=== PATIENT | female | born 1945 | race Two or more races ===

== ENCOUNTER 2017-09-05 10:05 | Emergency (ER) | payer MEDICARE, BC ==
[2017-09-05] MEDS ORDERED: amLODIPine 2.5 MG Tab ONE (10:20)
--- NOTE | 2017-09-05 10:26 | EDM.PDOC ---
ED HPI GENERAL MEDICAL PROBLEM - General Chief Complaint: General Stated Complaint: EDEMA Time Seen by Provider: 09/05/17 10:05 Source of Information: Reports: Patient, Family History Limitations: Reports: No Limitations - History of Present Illness INITIAL COMMENTS - FREE TEXT/NARRATIVE: Pt is a 71 years old female with old CVA, HTN who is from [place], [place], here with her family. According to son who is her manager care management, he has noticed some swelling of the lower lip, and also left hand over the radial aspect since last evening. Today she has had swelling over right hand too. No hoarseness of voice , no wheezing or stridor. 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 Pt is on coumadin and hence son got concerned. Onset Date: 09/04/17 Improves with: Reports: None Worsens with: Reports: None Associated Symptoms: Denies: Confusion, Chest Pain, Cough, Diaphoresis, Fever/ Chills, Headaches, Loss of Appetite, Malaise, Nausea/Vomiting, Rash, Seizure, Shortness of Breath, Syncope, Weakness ED ROS GENERAL - Review of Systems Review Of Systems: See Below Constitutional: Denies: Fever, Chills, Weakness, Fatigue, Night Sweats HEENT: Denies: Rhinitis, Sinus Problem, Throat Pain, Throat Swelling Respiratory: Denies: Shortness of Breath, Wheezing, Pleuritic Chest Pain, Cough , Sputum Cardiovascular: Denies: Chest Pain, Lightheadedness GI/Abdominal: Denies: Abdominal Pain, Nausea, Vomiting Musculoskeletal: Denies: Joint Pain, Joint Swelling Skin: Denies: Bruising, Pruritis, Rash Neurological: Reports: Pre-Existing Deficit (from old CVA- slurred speech). Denies: Confusion, Dizziness, Headache, Numbness, Seizure, Syncope, Tingling Psychiatric: Denies: Agitation, Anxiety, Confusion ED EXAM, GENERAL - Physical Exam Exam: See Below Exam Limited By: No Limitations General Appearance: Alert, WD/WN, No Apparent Distress Eye Exam: Bilateral Eye: EOMI, PERRL Ears: Normal External Exam, Normal Canal, Hearing Grossly Normal, Normal TMs Ear Exam: Bilateral Ear: Auricle Normal, Canal Normal, TM normal Nose: Normal Inspection, Normal Mucosa, No Blood Throat/Mouth: Normal Inspection, Normal Lips, Normal Teeth, Normal Gums, Normal Oropharynx, Normal Voice, No Airway Compromise Head: Atraumatic, Normocephalic Neck: Normal Inspection, Supple, Non-Tender, Full Range of Motion Respiratory/Chest: No Respiratory Distress, Lungs Clear, Normal Breath Sounds, No Accessory Muscle Use, Chest Non-Tender Cardiovascular: Normal Peripheral Pulses, Regular Rate, Rhythm, No Edema, No Gallop, No JVD, No Murmur, No Rub GI/Abdominal: Normal Bowel Sounds, Soft, Non-Tender, No Organomegaly, No Distention, No Abnormal Bruit, No Mass Extremities: Normal Inspection, Normal Range of Motion, Non-Tender, Normal Capillary Refill, No Pedal Edema Neurological: Alert, Oriented, CN II-XII Intact, Normal Cognition, Normal Gait, Normal Reflexes, No Motor/Sensory Deficits Skin Exam: Warm, Intact, Erythema (Mild erythema which is circumscribed over the radial aspect of the left hand over the thumb and index finger. There is skin edema over the rash. Nontender and minimally warm. Pt has similar symmetrical swelling over the right hand dorsum. Also the lower lip appears milds swoolen. No tongue swelling.). No: Ecchymosis Course - Vital Signs Text/Narrative:: Pt's clinical exam is normal and vitals stable, other than residual CVA signs. She does have lower lip swelling and symmetrical hand swelling with skin edema. This does appear like angioedema secondary to possible ARB losartan. Son claims that she has been on losartan for 1 and 1/2 years now. But angioedema can develop any time. Her CBC , BMP and PT appear normal. I have advised to stop losartan for now and Started her on amlodipine.Also advised small dose of benadryl 25mg 3 times daily for next 2 days. Advised to return to emergency room if she does develops change or hoarseness of voice, Stridor, wheezing or breathing difficulty. Otherwise followup with her primary care provider next week for further evaluation. Last Recorded V/S: Last Vital Signs Temp 97.0 F 09/05/17 10:05 Pulse 89 09/05/17 10:05 Resp 18 09/05/17 10:05 BP 148/53 H 09/05/17 10:05 Pulse Ox 97 09/05/17 10:05 - Orders/Labs/Meds Labs: Laboratory Tests 09/05/17 09/05/17 09/05/17 Range/Units 10:24 10:25 10:25 WBC 9.2 (4.0-11.0) K/uL RBC 3.85 (3.80-5.80) M/uL Hgb 12.3 (11.5-16.5) g/dL Hct 36.0 L (37.0-47.0) % MCV 94 (76-96) fL MCH 31.9 (27.0-32.0) pg MCHC 34.2 (31.0-35.0) g/dL RDW 14.8 (11.0-16.0) % Plt Count 272 (150-500) K/uL MPV 10.6 H (6.0-10.0) fL Neut % (Auto) 65.4 (45.0-70.0) % Lymph % (Auto) 16.3 L (20.0-40.0) % [place] % (Auto) 7.2 (3.0-10.0) % Eos % (Auto) 10.6 H (1.0-5.0) % Baso % (Auto) 0.5 (0.0-0.5) % Neut # (Auto) 5.98 (2.00-7.50) K/uL Lymph # (Auto) 1.49 L (1.50-4.00) K/uL [place] # (Auto) 0.66 (0.20-0.80) K/uL Eos # (Auto) 0.97 H (0.04-0.40) K/uL Baso # (Auto) 0.05 (0.02-0.10) K/uL PT 18.8 H (9.0-11.5) sec INR 1.9 (1.0-3.5) Sodium 139 (136-145) mmol/L Potassium 4.1 (3.5-5.1) mmol/L Chloride 102 (98-107) mmol/L Carbon Dioxide 28.7 (21.0-32.0) mmol/L Anion Gap 12.4 (5.0-15.0) mmol/L BUN 11 (8-26) mg/dL Creatinine 1.22 H (0.55-1.02) mg/dL Est Cr Clr Drug Dosing TNP Estimated GFR (MDRD) 43 L (>60) MLS/MIN BUN/Creatinine Ratio 9.0 (6-25) Glucose 101 H (74-100) mg/dL Calcium 8.4 L (8.5-10.1) mg/dL Departure - Departure Time of Disposition: 11:30 Disposition: Home, Self-Care 01 Condition: Fair Clinical Impression: Angioedema - Discharge Information Forms: ED Department Discharge Additional Instructions: Pt's clinical exam is normal and vitals stable, other than residual CVA signs. She does have lower lip swelling and symmetrical hand swelling with skin edema. This does appear like angioedema secondary to losartan. Son claims that she has been on losartan for 1 and 1/2 years now. But angioedema can develop any time. Her CBC , BMP and PT appear normal. I have advised to stop losartan for now and Started her on amlodipine.Also advised small dose of benadryl 25mg 3 times daily for next 2 days. Advised to return to emergency room if she does develops change or hoarseness of voice, Stridor, wheezing or breathing difficulty. Otherwise followup with her primary care provider next week for further evaluation. 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 She does have lower lip swelling and symmetrical hand swelling with skin edema. This does appear like angioedema secondary to losartan. Son claims that she has been on losartan for 1 and 1/2 years now. But angioedema can develop any time. Her CBC , BMP and PT appear normal. I have advised to stop losartan for now and Started her on amlodipine.Also advised small dose of benadryl 25mg 3 times daily for next 2 days. Advised to return to emergency room if she does develops change or hoarseness of voice, Stridor, wheezing or breathing difficulty. Otherwise followup with her primary care provider next week for further evaluation.
== END 2017-09-05 11:46 | disposition home or self-care (01) ==
LOC: LB.ED 10:05
DX: T78.3XXA Angioneurotic edema, initial encounter (principal); I10 Essential (primary) hypertension; Z86.73 Personal history of transient ischemic attack (TIA), and cerebral infarction without residual deficits
CPT/HCPCS: 36415; 80048; 85025; 85610; 99283; A9270-GY

== ENCOUNTER 2017-09-06 00:05 | Emergency (ER) | payer MEDICARE, BC ==
--- NOTE | 2017-09-06 00:28 | EDM.PDOC ---
ED HPI GENERAL MEDICAL PROBLEM - General Chief Complaint: General Stated Complaint: angioedema Time Seen by Provider: 09/06/17 00:05 Source of Information: Reports: Patient History Limitations: Reports: No Limitations - History of Present Illness INITIAL COMMENTS - FREE TEXT/NARRATIVE: Pt was brought back by her family to emergency room as her lip swelling has increase since she was seen in the evening. Pt other mcintyre feels fine. she is not in any respiratory distress. There has not been any more areas of swelling. No hoarseness of voice. no stridor.No nausea or vomiting. Pt was around 10 Am yesterday 09/05/17, with c/o lip swelling and b/l hand swelling. Pt's CBC. BMP and PT/inr was normal. Pt was on losartan, which was stopped and was started on benadryl 25mg. Family brought her in as she has been having slight increase in the lip swelling now.. Onset Date: 09/04/17 Severity: Mild Improves with: Reports: None Worsens with: Reports: None Associated Symptoms: Denies: Confusion, Chest Pain, Cough, Diaphoresis, Fever/ Chills, Nausea/Vomiting, Rash, Seizure, Shortness of Breath, Syncope, Weakness - Related Data Allergies Allergy/AdvReac Type Severity Reaction Status Date / Time Sulfa (Sulfonamide Allergy Hives Verified 09/05/17 12:16 Antibiotics) Home Meds: Home Meds Albuterol/Ipratropium [DuoNeb 3.0-0.5 MG/3 ML] 3 ml INH Q6H PRN 09/05/17 [ History] Alendronate Sodium [Fosamax] 70 mg PO WEEKLY 09/05/17 [History] Amiodarone [Cordarone] 200 mg PO BID 09/05/17 [History] Aspirin [Kaity Chewable] 81 mg PO DAILY 09/05/17 [History] Cyanocobalamin (Vitamin B-12) [Vitamin B-12] 1,000 mcg PO DAILY 09/05/17 [ History] Losartan [Cozaar] 25 mg PO BID 09/05/17 [History] Metoprolol Succinate [Toprol XL] 12.5 mg PO DAILY 09/05/17 [History] Mirtazapine [Remeron] 7.5 mg PO BEDTIME 09/05/17 [History] Omeprazole Magnesium [Prilosec Otc] 20 mg PO QPM 09/05/17 [History] Tiotropium [Spiriva] 18 mcg INH DAILY 09/05/17 [History] Warfarin [Coumadin] 1 mg PO DAILY 09/05/17 [History] atorvaSTATin [Lipitor] 40 mg PO DAILY 09/05/17 [History] Past Medical History Cardiovascular History: Reports: Heart Failure, High Cholesterol, Hypertension Respiratory History: Reports: COPD Gastrointestinal History: Reports: GERD [employer]ER History: Reports: Musculoskeletal History: Reports: Back Pain, Chronic, Neck Pain, Chronic Neurological History: Reports: CVA Psychiatric History: Reports: Other (See Below) 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 Hematologic History: Reports: B12 Deficiency - Past Surgical History Neurological Surgical History: Reports: C-Spine, Spinal Fusion Musculoskeletal Surgical History: Reports: Other (See Below) Other Musculoskeletal Surgeries/Procedures:: surgery to sciatic nerve ED ROS GENERAL - Review of Systems Review Of Systems: See Below Constitutional: Denies: Fever, Chills, Fatigue, Diaphoresis HEENT: Denies: Eye Pain, Rhinitis, Throat Pain, Throat Swelling, Vertigo Respiratory: Denies: Shortness of Breath, Wheezing, Pleuritic Chest Pain, Cough , Sputum Cardiovascular: Denies: Chest Pain, Lightheadedness GI/Abdominal: Denies: Abdominal Pain, Nausea, Vomiting : Denies: Flank Pain, Frequency Musculoskeletal: Denies: Joint Pain, Joint Swelling Skin: Denies: Bruising, Pruritis, Rash, Erythema Neurological: Denies: Confusion, Dizziness, Headache, Numbness, Tingling, Weakness ED EXAM, GENERAL - Physical Exam Exam: See Below Exam Limited By: No Limitations General Appearance: Alert, WD/WN, No Apparent Distress, Other (pt is pseaking with normal speech tone and pressure. No hoarseness of voice) Eye Exam: Bilateral Eye: EOMI, PERRL Ears: Normal External Exam, Normal Canal, Hearing Grossly Normal, Normal TMs Ear Exam: Bilateral Ear: Auricle Normal, Canal Normal, TM normal Nose: Normal Inspection, Normal Mucosa, No Blood. No: Nasal Flaring Throat/Mouth: Normal Inspection, Normal Lips, Normal Teeth, Normal Gums, Normal Oropharynx, Normal Voice, No Airway Compromise Head: Atraumatic, Normocephalic Neck: Normal Inspection, Supple, Non-Tender, Full Range of Motion Respiratory/Chest: No Respiratory Distress, Lungs Clear, Normal Breath Sounds, No Accessory Muscle Use, Chest Non-Tender Cardiovascular: Normal Peripheral Pulses, Regular Rate, Rhythm, No Edema, No Gallop, No JVD, No Murmur, No Rub Extremities: Normal Inspection, Normal Range of Motion, Non-Tender, No Pedal Edema, Normal Capillary Refill. No: Pedal Edema Neurological: Alert, Oriented, CN II-XII Intact, Normal Cognition Skin Exam: Warm, Intact (There is swelling of the lower lips. no tongue swelling. also she has symmetrical swelling over the radial aspect of the dorsum of the hand over the thumb and index fingers.) Course - Vital Signs Text/Narrative:: Pt had blood work about 12 hrs ago, there is slight increase in the swelling of the lower lip. There is no stridor or respiratory distress. Pt's SPO2 on room air is 99-100%. Patient does not appear in any distress. I have reassured family that angioedema takes some time to resolve. Should continue on benadryl, H1 receptor gertrudis. If they prefer they could increase benadryl to 50mg 3 times daily, but will cause drowsiness, in elderly patient. Also I have started her on Zantac 150mg BID as this is H2 receptor gertrudis. Again family has been advised to return if patient develops hoarseness of voice , stridor , wheezing or acute respiratory distress. The swelling has not spread anymore than what is was in the morning. Family and patient reassured. Departure - Departure Time of Disposition: 00:45 Disposition: Home, Self-Care 01 Condition: Fair Clinical Impression: Angioedema - Discharge Information Instructions: Angioedema, [id number] Forms: ED Department Discharge Additional Instructions: Continue with DC orders as ordered [place] today, DC Losartan, Benadryl 25-50mg 3 x a day. Take Zantac 150mg 2 x a day x 5 day. Return to ER if difficlulty breathing, SOB, stridor, unusual monica pitch or any other souds with breathing. - Problem List & Annotations (1) Angioedema SNOMED Code(s): 01840461 Code(s): T78.3XXA - ANGIONEUROTIC EDEMA, INITIAL ENCOUNTER Status: Acute - Problem List Review Problem List Initiated/Reviewed/Updated: Yes - Assessment/Plan Assessment:: Angioedema Plan: Pt had blood work about 12 hrs ago, there is slight increase in the swelling of the lower lip. There is no stridor or respiratory distress. Pt's SPO2 on room air is 99-100%. Patient does not appear in any distress. I have reassured family that angioedema takes some time to resolve. Should continue on benadryl, H1 receptor gertrudis. If they prefer they could increase benadryl to 50mg 3 times daily, but will cause drowsiness, in elderly patient. Also I have started her on Zantac 150mg BID as this is H2 receptor gertrudis. Again family has been advised to return if patient develops hoarseness of voice , stridor , wheezing or acute respiratory distress. The swelling has not spread anymore than what is was in the morning. Family and patient reassured.
== END 2017-09-06 00:30 | disposition home or self-care (01) ==
LOC: LB.ED 00:05
DX: T78.3XXA Angioneurotic edema, initial encounter (principal); I11.0 Hypertensive heart disease with heart failure; I50.9 Heart failure, unspecified; E78.00 Pure hypercholesterolemia, unspecified; J44.9 Chronic obstructive pulmonary disease, unspecified; K21.9 Gastro-esophageal reflux disease without esophagitis; Z79.82 Long term (current) use of aspirin; Z79.01 Long term (current) use of anticoagulants; Z79.899 Other long term (current) drug therapy; Z88.2 Allergy status to sulfonamides
CPT/HCPCS: 99282; 99283; A9270-GY